=== PATIENT | female | born 1970 | race Caucasian/White ===

== ENCOUNTER 2022-01-28 17:15 | Inpatient (IN) | payer OTHER ==
[2022-01-28 18:28] VITALS: BMI 16.9
[2022-01-28] MEDS ORDERED: NICOTINE 10 MG CARTRIDGE (INHALER) IH PRN (20:22)
[2022-01-28] MEDS ORDERED: MAGNESIUM CITRATE 300 ML BOTTLE PO PRN (20:22)
[2022-01-28] MEDS ORDERED: BISMUTH SUBSALICYLATE 524 MG/30 ML PO PRN (20:22)
[2022-01-28] MEDS ORDERED: P-EPHED 60MG/TRIPROLIDI 2.5MG TABLET PO PRN (20:22)
[2022-01-28] MEDS ORDERED: MAGNESIUM HYDROX 2400MG/30ML ORAL SUSPENSION 30 ML CUP PO PRN (20:22)
[2022-01-28] MEDS ORDERED: LOPERAMIDE HCL 2 MG CAPSULE PO PRN (20:22)
[2022-01-28] MEDS ORDERED: ACETAMINOPHEN 325 MG TABLET (FP) PO PRN ×2 (20:22)
[2022-01-28] MEDS ORDERED: MAG HYDROX/AL HYDROX/SIMETH 30 ML UNIT-DOSE CUP PO PRN (20:22)
[2022-01-28] MEDS ORDERED: ONDANSETRON *ODT* 4 MG TABLET SL PRN (20:22)
[2022-01-28] MEDS ORDERED: BENZOCAINE/MENTHOL (CHLORASEPTIC ) LOZENGE MM PRN (20:22)
[2022-01-28] MEDS ORDERED: DICYCLOMINE HCL 10 MG CAPSULE PO PRN (20:22)
[2022-01-28] MEDS ORDERED: chlordiazePOXIDE HCL 25 MG CAPSULE PO PRN (20:24)
[2022-01-29] MEDS: chlordiazePOXIDE HCL 25 MG CAPSULE PO SCH ×5 (00:37→22:31)
[2022-01-29] MEDS: MELATONIN 5 MG TABLETS PO PRN ×2 (00:40→22:31)
[2022-01-29] MEDS: THIAMINE HCL 100 MG TABLET (FP) PO SCH ×2 (00:47→22:31)
[2022-01-29] MEDS: hydrOXYzine PAMOATE 25 MG CAPSULE (FP) PO PRN (06:01)
[2022-01-29] MEDS ORDERED: methaDONE HCL 10 MG TABLET PO ONE ×2 (09:03→10:08)
[2022-01-29] MEDS ORDERED: methaDONE HCL 10 MG TABLET ONE (10:24)
[2022-01-29] MEDS ORDERED: methaDONE HCL 40 MG DISPERSABLE TABLET ONE (10:25)
[2022-01-29] MEDS: PRENATAL VITAMINS W/ FOLIC ACID TABLET (FP) PO SCH (10:26)
[2022-01-29] MEDS: EMTRICITABINE 200MG/TENOFOVIR 300MG PO SCH (10:26)
[2022-01-29] MEDS ORDERED: methaDONE 40 MG, methaDONE 20 MG PO ONE (10:30)
[2022-01-30] MEDS ORDERED: methaDONE HCL 40 MG DISPERSABLE TABLET ONE (04:42)
[2022-01-30] MEDS ORDERED: methaDONE HCL 10 MG TABLET ONE (04:42)
[2022-01-30] MEDS: chlordiazePOXIDE HCL 25 MG CAPSULE PO SCH ×4 (05:45→22:27)
[2022-01-30] MEDS ORDERED: methaDONE HCL 10 MG TABLET PO SCH ×2 (06:00)
[2022-01-30] MEDS ORDERED: methaDONE 40 MG, methaDONE 30 MG PO ONE (06:00)
[2022-01-30] MEDS: hydrOXYzine PAMOATE 25 MG CAPSULE (FP) PO PRN (10:15)
[2022-01-30] MEDS: PRENATAL VITAMINS W/ FOLIC ACID TABLET (FP) PO SCH (10:15)
[2022-01-30] MEDS: FLUoxetine HCL 20 MG CAPSULE PO SCH (10:15)
[2022-01-30] MEDS: EMTRICITABINE 200MG/TENOFOVIR 300MG PO SCH (10:17)
[2022-01-30] MEDS: METHOCARBAMOL 500 MG TABLET PO PRN (10:17)
[2022-01-30] MEDS: IBUPROFEN 400 MG TABLET (FP) PO PRN (10:17)
[2022-01-30 12:53] LABS: HEMATOCRIT 33.8 % (32.4-45.2); HEMOGLOBIN 11.6 GM/dL (10.7-15.3); MCH 29.7 pg (25.7-33.7); MCHC 34.2 g/dl (32.0-36.0); MEAN CELL VOLUME 86.8 fl (80-96); MEAN PLT VOLUME 8.1 fl (7.5-11.1); PLATELET COUNT 229 10^3/uL (134-434); RBC 3.89 M/mm3 (3.60-5.2); RDW 14.6 % (11.6-15.6); WHITE BLOOD COUNT 4.2 K/mm3 (4.0-10.0)
[2022-01-30 13:40] LABS: ALBUMIN 3.2 g/dl (3.4-5.0); BLOOD UREA NITROGEN 12.8 mg/dL (7-18); CALCIUM 8.7 mg/dL (8.5-10.1)
[2022-01-30 13:44] LABS: BILIRUBIN,TOTAL 0.2 mg/dL (0.2-1); CREATININE 0.9 mg/dL (0.55-1.3)
[2022-01-30 13:45] LABS: TOT PROT 6.5 g/dl (6.4-8.2)
[2022-01-30] MEDS: IBUPROFEN 600 MG TABLET (FP) PO PRN (17:35)
[2022-01-30] MEDS: THIAMINE HCL 100 MG TABLET (FP) PO SCH (22:26)
[2022-01-30] MEDS: MELATONIN 5 MG TABLETS PO PRN (22:26)
[2022-01-31] MEDS ORDERED: chlordiazePOXIDE HCL 10 MG CAPSULE PO PRN
[2022-01-31] MEDS ORDERED: methaDONE HCL 40 MG DISPERSABLE TABLET PO ONE (06:00)
[2022-01-31] MEDS ORDERED: methaDONE HCL 10 MG TABLET PO SCH (06:00)
[2022-01-31] MEDS: chlordiazePOXIDE HCL 10 MG CAPSULE PO SCH ×4 (06:37→22:34)
[2022-01-31] MEDS: hydrOXYzine PAMOATE 25 MG CAPSULE (FP) PO PRN (06:38)
[2022-01-31] MEDS: FLUoxetine HCL 20 MG CAPSULE PO SCH (10:46)
[2022-01-31] MEDS: PRENATAL VITAMINS W/ FOLIC ACID TABLET (FP) PO SCH (10:46)
[2022-01-31] MEDS: EMTRICITABINE 200MG/TENOFOVIR 300MG PO SCH (10:46)
[2022-01-31] MEDS: IBUPROFEN 400 MG TABLET (FP) PO PRN (22:32)
[2022-01-31] MEDS: MELATONIN 5 MG TABLETS PO PRN (22:32)
[2022-01-31] MEDS: THIAMINE HCL 100 MG TABLET (FP) PO SCH (22:32)
[2022-02-01] MEDS ORDERED: methaDONE HCL 10 MG TABLET ONE (04:38)
[2022-02-01] MEDS ORDERED: methaDONE HCL 40 MG DISPERSABLE TABLET ONE (04:39)
[2022-02-01] MEDS ORDERED: methaDONE HCL 10 MG TABLET PO SCH (06:00)
[2022-02-01] MEDS: methaDONE 80 MG, methaDONE 10 MG PO SCH (06:21)
[2022-02-01] MEDS: chlordiazePOXIDE HCL 10 MG CAPSULE PO SCH ×2 (06:21→17:54)
[2022-02-01] MEDS: IBUPROFEN 600 MG TABLET (FP) PO PRN (10:24)
[2022-02-01] MEDS: hydrOXYzine PAMOATE 25 MG CAPSULE (FP) PO PRN ×2 (10:24→19:34)
[2022-02-01] MEDS: PRENATAL VITAMINS W/ FOLIC ACID TABLET (FP) PO SCH (10:24)
[2022-02-01] MEDS: EMTRICITABINE 200MG/TENOFOVIR 300MG PO SCH (10:25)
[2022-02-01] MEDS: FLUoxetine HCL 20 MG CAPSULE PO SCH (10:25)
[2022-02-01] MEDS: METHOCARBAMOL 500 MG TABLET PO PRN (17:52)
[2022-02-01] MEDS: THIAMINE HCL 100 MG TABLET (FP) PO SCH (22:56)
[2022-02-02] MEDS ORDERED: chlordiazePOXIDE HCL 10 MG CAPSULE PO ONE (05:00)
[2022-02-02] MEDS ORDERED: methaDONE HCL 10 MG TABLET ONE (05:07)
[2022-02-02] MEDS ORDERED: methaDONE HCL 40 MG DISPERSABLE TABLET ONE (05:08)
[2022-02-02] MEDS: methaDONE 80 MG, methaDONE 10 MG PO SCH (06:35)
[2022-02-02 08:42] VITALS: BP 102/65; PULSE 73; TEMP 97.6
[2022-02-02] MEDS: PRENATAL VITAMINS W/ FOLIC ACID TABLET (FP) PO SCH (10:24)
[2022-02-02] MEDS: EMTRICITABINE 200MG/TENOFOVIR 300MG PO SCH (10:25)
[2022-02-02] MEDS: FLUoxetine HCL 20 MG CAPSULE PO SCH (10:25)
[2022-02-02] MEDS: hydrOXYzine PAMOATE 25 MG CAPSULE (FP) PO PRN (10:26)
[2022-02-02] MEDS: IBUPROFEN 400 MG TABLET (FP) PO PRN (10:27)
[2022-02-02] MEDS: METHOCARBAMOL 500 MG TABLET PO PRN (10:27)
[2022-02-04 01:00] LABS: HIV INTERPRETATION NEGATIVE (NEGATIVE)
== END 2022-02-02 12:20 | disposition home or self-care (01) | DRG 773 ==
LOC: YASAS 17:15 → Y3N 23:01
PROVIDERS: ADMIT Allergy & Immunology; ATTEND Surgery
PROC: HZ2ZZZZ Detoxification Services for Substance Abuse Treatment (ICD-10-PCS; principal; 2022-01-28)
DX: F11.23 Opioid dependence with withdrawal (principal); F10.230 Alcohol dependence with withdrawal, uncomplicated; F13.20 Sedative, hypnotic or anxiolytic dependence, uncomplicated; F14.20 Cocaine dependence, uncomplicated; F15.20 Other stimulant dependence, uncomplicated; F17.210 Nicotine dependence, cigarettes, uncomplicated; F19.282 Other psychoactive substance dependence with psychoactive substance-induced sleep disorder; F19.24 Other psychoactive substance dependence with psychoactive substance-induced mood disorder; F39 Unspecified mood [affective] disorder; Z62.810 Personal history of physical and sexual abuse in childhood; I35.0 Nonrheumatic aortic (valve) stenosis; Z95.2 Presence of prosthetic heart valve; R63.4 Abnormal weight loss; Z68.1 Body mass index [BMI] 19.9 or less, adult
CPT/HCPCS: 36415; 80053; 81025; 85027; 86780; 87389; C9803-CS; U0003; U0005

== ENCOUNTER 2022-03-30 13:55 | Inpatient (IN) | payer OTHER ==
[2022-03-30] MEDS ORDERED: BENZOCAINE/MENTHOL (CHLORASEPTIC ) LOZENGE MM PRN (17:51)
[2022-03-30] MEDS ORDERED: ACETAMINOPHEN 325 MG TABLET (FP) PO PRN ×2 (17:51)
[2022-03-30] MEDS ORDERED: ONDANSETRON *ODT* 4 MG TABLET SL PRN (17:51)
[2022-03-30] MEDS ORDERED: BISMUTH SUBSALICYLATE 524 MG/30 ML PO PRN (17:51)
[2022-03-30] MEDS ORDERED: DICYCLOMINE HCL 10 MG CAPSULE PO PRN (17:51)
[2022-03-30] MEDS ORDERED: chlordiazePOXIDE HCL 25 MG CAPSULE PO PRN (17:51)
[2022-03-30] MEDS ORDERED: MAGNESIUM HYDROX 2400MG/30ML ORAL SUSPENSION 30 ML CUP PO PRN (17:51)
[2022-03-30] MEDS ORDERED: MAG HYDROX/AL HYDROX/SIMETH 30 ML UNIT-DOSE CUP PO PRN (17:51)
[2022-03-30] MEDS ORDERED: IBUPROFEN 400 MG TABLET (FP) PO PRN (17:51)
[2022-03-30] MEDS ORDERED: LOPERAMIDE HCL 2 MG CAPSULE PO PRN (17:51)
[2022-03-30] MEDS ORDERED: IBUPROFEN 600 MG TABLET (FP) PO PRN (17:51)
[2022-03-30] MEDS: FAMOTIDINE 20 MG TABLET PO SCH (19:24)
[2022-03-30] MEDS: chlordiazePOXIDE HCL 25 MG CAPSULE PO SCH ×2 (19:25→22:19)
[2022-03-30] MEDS: hydrOXYzine PAMOATE 25 MG CAPSULE (FP) PO SCH ×2 (19:25→22:19)
[2022-03-30] MEDS: NICOTINE 10 MG CARTRIDGE (INHALER) IH PRN (19:40)
[2022-03-30] MEDS: EMTRICITABINE 200MG/TENOFOVIR 300MG PO SCH (20:00)
[2022-03-30] MEDS: MELATONIN 5 MG TABLETS PO SCH (22:19)
[2022-03-30] MEDS: THIAMINE HCL 100 MG TABLET (FP) PO SCH (22:19)
[2022-03-31] MEDS: hydrOXYzine PAMOATE 25 MG CAPSULE (FP) PO SCH ×5 (05:44→22:02)
[2022-03-31] MEDS: chlordiazePOXIDE HCL 25 MG CAPSULE PO SCH ×4 (05:44→22:02)
[2022-03-31] MEDS ORDERED: ESTRADIOL 0.5 MG PO SCH (10:00)
[2022-03-31] MEDS: FAMOTIDINE 20 MG TABLET PO SCH (10:16)
[2022-03-31] MEDS: METHOCARBAMOL 500 MG TABLET PO PRN ×2 (10:16→16:44)
[2022-03-31] MEDS: PRENATAL VITAMINS W/ FOLIC ACID TABLET (FP) PO SCH (10:16)
[2022-03-31] MEDS: EMTRICITABINE 200MG/TENOFOVIR 300MG PO SCH (10:17)
[2022-03-31] MEDS ORDERED: methaDONE HCL 10 MG TABLET PO ONE (10:42)
[2022-03-31] MEDS ORDERED: methaDONE 80 MG, methaDONE 10 MG PO ONE (10:45)
[2022-03-31 10:48] LABS: HEMATOCRIT 35.2 % (32.4-45.2); HEMOGLOBIN 11.6 GM/dL (10.7-15.3); MCH 28.7 pg (25.7-33.7); MCHC 32.9 g/dl (32.0-36.0); MEAN CELL VOLUME 87.3 fl (80-96); MEAN PLT VOLUME 8.6 fl (7.5-11.1); PLATELET COUNT 259 10^3/uL (134-434); RBC 4.03 M/mm3 (3.60-5.2); RDW 14.2 % (11.6-15.6); WHITE BLOOD COUNT 8.2 K/mm3 (4.0-10.0)
[2022-03-31 11:41] LABS: CALCIUM 8.8 mg/dL (8.5-10.1)
[2022-03-31 11:42] LABS: ALBUMIN 3.4 g/dl (3.4-5.0); BLOOD UREA NITROGEN 16.1 mg/dL (7-18)
[2022-03-31 11:45] LABS: CREATININE 0.9 mg/dL (0.55-1.3)
[2022-03-31 11:47] LABS: BILIRUBIN,TOTAL 0.4 mg/dL (0.2-1); TOT PROT 6.9 g/dl (6.4-8.2)
[2022-03-31] MEDS: NICOTINE 10 MG CARTRIDGE (INHALER) IH PRN (17:43)
[2022-03-31] MEDS: THIAMINE HCL 100 MG TABLET (FP) PO SCH (22:02)
[2022-03-31] MEDS: MELATONIN 5 MG TABLETS PO SCH (22:03)
[2022-03-31] MEDS: MAGNESIUM CITRATE 300 ML BOTTLE PO PRN (22:05)
[2022-04-01] MEDS: methaDONE 80 MG, methaDONE 10 MG PO SCH (05:40)
[2022-04-01] MEDS: hydrOXYzine PAMOATE 25 MG CAPSULE (FP) PO SCH ×5 (05:40→22:18)
[2022-04-01] MEDS: chlordiazePOXIDE HCL 25 MG CAPSULE PO SCH ×4 (05:41→22:19)
[2022-04-01] MEDS ORDERED: methaDONE HCL 10 MG TABLET PO SCH (06:00)
[2022-04-01] MEDS: FAMOTIDINE 20 MG TABLET PO SCH (10:39)
[2022-04-01] MEDS: METHOCARBAMOL 500 MG TABLET PO PRN ×2 (10:39→18:12)
[2022-04-01] MEDS: PRENATAL VITAMINS W/ FOLIC ACID TABLET (FP) PO SCH (10:39)
[2022-04-01] MEDS: EMTRICITABINE 200MG/TENOFOVIR 300MG PO SCH (10:40)
[2022-04-01] MEDS: NICOTINE 10 MG CARTRIDGE (INHALER) IH PRN (13:00)
[2022-04-01] MEDS: MAGNESIUM CITRATE 300 ML BOTTLE PO PRN (15:01)
[2022-04-01 16:14] LABS: HIV INTERPRETATION NEGATIVE (NEGATIVE)
[2022-04-01] MEDS: MELATONIN 5 MG TABLETS PO SCH (22:18)
[2022-04-01] MEDS: THIAMINE HCL 100 MG TABLET (FP) PO SCH (22:18)
[2022-04-02] MEDS ORDERED: chlordiazePOXIDE HCL 10 MG CAPSULE PO PRN
[2022-04-02] MEDS: hydrOXYzine PAMOATE 25 MG CAPSULE (FP) PO SCH ×5 (07:06→22:43)
[2022-04-02] MEDS: chlordiazePOXIDE HCL 10 MG CAPSULE PO SCH ×4 (07:06→22:43)
[2022-04-02] MEDS: methaDONE 80 MG, methaDONE 10 MG PO SCH (07:10)
[2022-04-02] MEDS: METHOCARBAMOL 500 MG TABLET PO PRN ×2 (10:33→18:47)
[2022-04-02] MEDS: FAMOTIDINE 20 MG TABLET PO SCH (10:33)
[2022-04-02] MEDS: PRENATAL VITAMINS W/ FOLIC ACID TABLET (FP) PO SCH (10:33)
[2022-04-02] MEDS: EMTRICITABINE 200MG/TENOFOVIR 300MG PO SCH (10:33)
[2022-04-02] MEDS ORDERED: DIPHENOXYLATE 2.5/ATROPINE.025 1 COMBO TABLET PO ONE (15:41)
[2022-04-02] MEDS: THIAMINE HCL 100 MG TABLET (FP) PO SCH (22:43)
[2022-04-02] MEDS: MELATONIN 5 MG TABLETS PO SCH (22:43)
[2022-04-03] MEDS ORDERED: chlordiazePOXIDE HCL 10 MG CAPSULE PO SCH (05:00)
[2022-04-03] MEDS: hydrOXYzine PAMOATE 25 MG CAPSULE (FP) PO SCH ×2 (07:01→10:21)
[2022-04-03] MEDS: methaDONE 80 MG, methaDONE 10 MG PO SCH (07:01)
[2022-04-03 09:33] VITALS: BP 91/64; PULSE 88; RESP 147; TEMP 97.7
[2022-04-03] MEDS: EMTRICITABINE 200MG/TENOFOVIR 300MG PO SCH (10:20)
[2022-04-03] MEDS: PRENATAL VITAMINS W/ FOLIC ACID TABLET (FP) PO SCH (10:20)
[2022-04-03] MEDS: FAMOTIDINE 20 MG TABLET PO SCH (10:21)
[2022-04-03] MEDS: METHOCARBAMOL 500 MG TABLET PO PRN (10:21)
[2022-04-04] MEDS ORDERED: chlordiazePOXIDE HCL 10 MG CAPSULE PO ONE (05:00)
== END 2022-04-03 11:25 | disposition home or self-care (01) | DRG 773 ==
LOC: YASAS 13:55 → Y6N 18:05
PROVIDERS: ADMIT Allergy & Immunology; ATTEND Surgery
PROC: HZ2ZZZZ Detoxification Services for Substance Abuse Treatment (ICD-10-PCS; principal; 2022-03-30)
DX: F10.230 Alcohol dependence with withdrawal, uncomplicated (principal); F11.20 Opioid dependence, uncomplicated; F13.230 Sedative, hypnotic or anxiolytic dependence with withdrawal, uncomplicated; F14.20 Cocaine dependence, uncomplicated; F17.210 Nicotine dependence, cigarettes, uncomplicated; F39 Unspecified mood [affective] disorder; F19.24 Other psychoactive substance dependence with psychoactive substance-induced mood disorder; F19.280 Other psychoactive substance dependence with psychoactive substance-induced anxiety disorder; F43.10 Post-traumatic stress disorder, unspecified; I10 Essential (primary) hypertension; Z28.310 Unvaccinated for COVID-19; Z56.0 Unemployment, unspecified
CPT/HCPCS: 36415; 80053; 81025; 85027; 86780; 87389; C9803-CS; U0003; U0005

== ENCOUNTER 2022-05-11 12:12 | Inpatient (IN) | payer OTHER ==
[2022-05-11 13:02] VITALS: BMI 17.3
[2022-05-11] MEDS ORDERED: MAG HYDROX/AL HYDROX/SIMETH 30 ML UNIT-DOSE CUP PO PRN (15:26)
[2022-05-11] MEDS ORDERED: diazePAM 5 MG TABLET PO PRN (15:26)
[2022-05-11] MEDS ORDERED: IBUPROFEN 400 MG TABLET (FP) PO PRN (15:26)
[2022-05-11] MEDS ORDERED: BENZOCAINE/MENTHOL (CHLORASEPTIC ) LOZENGE MM PRN (15:26)
[2022-05-11] MEDS ORDERED: DICYCLOMINE HCL 10 MG CAPSULE PO PRN (15:26)
[2022-05-11] MEDS ORDERED: IBUPROFEN 600 MG TABLET (FP) PO PRN (15:26)
[2022-05-11] MEDS ORDERED: MAGNESIUM HYDROX 2400MG/30ML ORAL SUSPENSION 30 ML CUP PO PRN (15:26)
[2022-05-11] MEDS ORDERED: ONDANSETRON *ODT* 4 MG TABLET SL PRN (15:26)
[2022-05-11] MEDS ORDERED: METHOCARBAMOL 500 MG TABLET PO PRN (15:26)
[2022-05-11] MEDS ORDERED: ACETAMINOPHEN 325 MG TABLET (FP) PO PRN (15:26)
[2022-05-11] MEDS ORDERED: NICOTINE 10 MG CARTRIDGE (INHALER) IH PRN (15:26)
[2022-05-11] MEDS ORDERED: NICOTINE POLACRILEX 2 MG GUM BUC PRN (15:26)
[2022-05-11] MEDS ORDERED: LOPERAMIDE HCL 2 MG CAPSULE PO PRN (15:26)
[2022-05-11] MEDS ORDERED: MAGNESIUM CITRATE 300 ML BOTTLE PO PRN (15:26)
[2022-05-11] MEDS ORDERED: BISMUTH SUBSALICYLATE 524 MG/30 ML PO PRN (15:26)
[2022-05-11] MEDS ORDERED: diazePAM 5 MG TABLET PO STA (15:42)
[2022-05-11] MEDS ORDERED: diazePAM 5 MG TABLET ONE (15:52)
[2022-05-11] MEDS: PRENATAL VITAMINS W/ FOLIC ACID TABLET (FP) PO SCH (18:00)
[2022-05-11] MEDS: diazePAM 5 MG TABLET PO SCH ×2 (18:01→22:04)
[2022-05-11] MEDS: hydrOXYzine PAMOATE 25 MG CAPSULE (FP) PO SCH ×2 (18:03→22:04)
[2022-05-11] MEDS: THIAMINE HCL 100 MG TABLET (FP) PO SCH (22:04)
[2022-05-11] MEDS: EMTRICITABINE 200MG/TENOFOVIR 300MG PO SCH (22:04)
[2022-05-11] MEDS: MELATONIN 5 MG TABLETS PO SCH (22:04)
[2022-05-11] MEDS: ACETAMINOPHEN 325 MG TABLET (FP) PO PRN (22:06)
[2022-05-12] MEDS ORDERED: methaDONE HCL 10 MG TABLET PO SCH (06:00)
[2022-05-12] MEDS: diazePAM 5 MG TABLET PO SCH ×4 (06:09→22:25)
[2022-05-12] MEDS: methaDONE 80 MG, methaDONE 10 MG PO SCH (06:09)
[2022-05-12] MEDS: hydrOXYzine PAMOATE 25 MG CAPSULE (FP) PO SCH ×5 (06:10→22:25)
[2022-05-12] MEDS: EMTRICITABINE 200MG/TENOFOVIR 300MG PO SCH (10:13)
[2022-05-12] MEDS: PRENATAL VITAMINS W/ FOLIC ACID TABLET (FP) PO SCH (10:13)
[2022-05-12 11:24] LABS: HEMATOCRIT 29.8 % (32.4-45.2); MCH 28.8 pg (25.7-33.7); MCHC 33.7 g/dl (32.0-36.0); MEAN CELL VOLUME 85.4 fl (80-96); MEAN PLT VOLUME 8.2 fl (7.5-11.1); PLATELET COUNT 371 10^3/uL (134-434); RBC 3.49 M/mm3 (3.60-5.2); RDW 13.8 % (11.6-15.6); WHITE BLOOD COUNT 5.6 K/mm3 (4.0-10.0)
[2022-05-12 11:50] LABS: ALBUMIN 2.5 g/dl (3.4-5.0); BLOOD UREA NITROGEN 13.2 mg/dL (7-18); CALCIUM 8.6 mg/dL (8.5-10.1)
[2022-05-12 11:54] LABS: CREATININE 0.9 mg/dL (0.55-1.3)
[2022-05-12 11:55] LABS: BILIRUBIN,TOTAL 0.3 mg/dL (0.2-1); TOT PROT 5.9 g/dl (6.4-8.2)
[2022-05-12 13:16] LABS: HIV INTERPRETATION NEGATIVE (NEGATIVE)
[2022-05-12] MEDS: ESTRADIOL 2 MG TABLET (NON-FORMULARY) PO SCH (13:35)
[2022-05-12] MEDS: traZODone HCL 100 MG TABLET (FP) PO SCH (22:25)
[2022-05-12] MEDS: THIAMINE HCL 100 MG TABLET (FP) PO SCH (22:25)
[2022-05-12] MEDS: MELATONIN 5 MG TABLETS PO SCH (22:25)
[2022-05-13] MEDS: diazePAM 5 MG TABLET PO SCH ×3 (06:16→22:28)
[2022-05-13] MEDS: hydrOXYzine PAMOATE 25 MG CAPSULE (FP) PO SCH ×5 (06:17→22:28)
[2022-05-13] MEDS: methaDONE 80 MG, methaDONE 10 MG PO SCH (06:17)
[2022-05-13] MEDS: PRENATAL VITAMINS W/ FOLIC ACID TABLET (FP) PO SCH (10:44)
[2022-05-13] MEDS: EMTRICITABINE 200MG/TENOFOVIR 300MG PO SCH (10:45)
[2022-05-13] MEDS: ESTRADIOL 2 MG TABLET (NON-FORMULARY) PO SCH (10:45)
[2022-05-13] MEDS: ACETAMINOPHEN 325 MG TABLET (FP) PO PRN (22:27)
[2022-05-13] MEDS: THIAMINE HCL 100 MG TABLET (FP) PO SCH (22:28)
[2022-05-13] MEDS: traZODone HCL 100 MG TABLET (FP) PO SCH (22:28)
[2022-05-13] MEDS: MELATONIN 5 MG TABLETS PO SCH (22:28)
[2022-05-14] MEDS: diazePAM 5 MG TABLET PO SCH ×2 (07:20→19:08)
[2022-05-14] MEDS: methaDONE 80 MG, methaDONE 10 MG PO SCH (07:20)
[2022-05-14] MEDS: hydrOXYzine PAMOATE 25 MG CAPSULE (FP) PO SCH ×4 (07:21→19:09)
[2022-05-14 07:43] VITALS: RESP 16
[2022-05-14] MEDS: PRENATAL VITAMINS W/ FOLIC ACID TABLET (FP) PO SCH (10:43)
[2022-05-14] MEDS: EMTRICITABINE 200MG/TENOFOVIR 300MG PO SCH (10:44)
[2022-05-14] MEDS: ESTRADIOL 2 MG TABLET (NON-FORMULARY) PO SCH (10:44)
[2022-05-14 12:25] VITALS: BP 78/53; PULSE 82; TEMP 97.7
[2022-05-15] MEDS ORDERED: diazePAM 5 MG TABLET PO ONE (06:00)
== END 2022-05-14 20:20 | disposition short-term general hospital (02) | DRG 773 ==
LOC: YASAS 12:12 → Y3N 15:58
PROVIDERS: ADMIT Allergy & Immunology; ATTEND Surgery
PROC: HZ2ZZZZ Detoxification Services for Substance Abuse Treatment (ICD-10-PCS; principal; 2022-05-11)
DX: F10.230 Alcohol dependence with withdrawal, uncomplicated (principal); F11.20 Opioid dependence, uncomplicated; F14.20 Cocaine dependence, uncomplicated; F13.20 Sedative, hypnotic or anxiolytic dependence, uncomplicated; F17.210 Nicotine dependence, cigarettes, uncomplicated; F31.9 Bipolar disorder, unspecified; F19.282 Other psychoactive substance dependence with psychoactive substance-induced sleep disorder; F19.24 Other psychoactive substance dependence with psychoactive substance-induced mood disorder; R42 Dizziness and giddiness; Z62.810 Personal history of physical and sexual abuse in childhood; Z91.410 Personal history of adult physical and sexual abuse; Z28.310 Unvaccinated for COVID-19
CPT/HCPCS: 36415; 80053; 81025; 85027; 86780; 87389; 87811; C9803-CS; U0003; U0005

== ENCOUNTER 2022-05-14 13:18 | Inpatient (IN) | payer OTHER ==
[2022-05-14] MEDS ORDERED: SODIUM CHLORIDE 0.9% 500 ML INFUS.BAG IV ONE ×2 (13:59→16:17)
[2022-05-14 15:09] LABS: BASO % 0.5 % (0-2.0); EOS % 1.2 % (0-4.5); HEMATOCRIT 33.6 % (32.4-45.2); HEMOGLOBIN 11.1 GM/dL (10.7-15.3); LYMPH % 31.9 % (8-40); MCH 28.3 pg (25.7-33.7); MCHC 32.9 g/dl (32.0-36.0); MEAN PLT VOLUME 7.8 fl (7.5-11.1); MONO % 7.6 % (3.8-10.2); NEUT % 58.8 % (42.8-82.8); PLATELET COUNT 306 10^3/uL (134-434); RBC 3.91 M/mm3 (3.60-5.2); RDW 13.8 % (11.6-15.6); WHITE BLOOD COUNT 5.1 K/mm3 (4.0-10.0)
[2022-05-14 15:20] LABS: INR 1.67 (0.83-1.09); PROTHROMBIN TIME (PATIENT) 19.3 SEC (9.7-13.0)
[2022-05-14 15:23] LABS: ACTIVATED PTT 30.9 SECONDS (25.2-36.5)
[2022-05-14 15:28] LABS: CALCIUM 8.7 mg/dL (8.5-10.1)
[2022-05-14 15:29] LABS: ALBUMIN 2.8 g/dl (3.4-5.0); BLOOD UREA NITROGEN 9.4 mg/dL (7-18); MAGNESIUM 2.1 mg/dL (1.8-2.4)
[2022-05-14 15:31] LABS: PHOSPHOROUS 3.5 mg/dL (2.5-4.9)
[2022-05-14 15:33] LABS: BILIRUBIN,TOTAL 0.1 mg/dL (0.2-1); TOT PROT 6.6 g/dl (6.4-8.2)
[2022-05-14] MEDS ORDERED: SODIUM CHLORIDE 1,000 ML IV SCH (17:00)
[2022-05-14 19:15] LABS: PH,URINE 7.5 (5.0-8.0); URINE APPEARANCE CLEAR; URINE BILIRUBIN NEGATIVE (NEGATIVE); URINE COLOR YELLOW; URINE GLUCOSE (UA) NEGATIVE (NEGATIVE); URINE KETONE NEGATIVE (NEGATIVE); URINE LEUK ESTERASE NEGATIVE (NEGATIVE); URINE NITRITE NEGATIVE (NEGATIVE); URINE PROTEIN NEGATIVE (NEGATIVE); URINE UROBILINOGEN 0.2 mg/dL (0.2-1.0)
[2022-05-14] MEDS ORDERED: POLYETHYLENE GLYCOL (HEALTHYLAX) 3350 17 GM PACKET ONE (22:34)
[2022-05-14] MEDS ORDERED: DOCUSATE SODIUM 100 MG CAPSULE (FP) PO ONE (22:34)
[2022-05-14] MEDS ORDERED: diazePAM 5 MG TABLET ONE (22:34)
[2022-05-14] MEDS: diazePAM 5 MG TABLET PO SCH (22:38)
[2022-05-14] MEDS: POLYETHYLENE GLYCOL (HEALTHYLAX) 3350 17 GM PACKET PO SCH (22:38)
[2022-05-14] MEDS: SENNOSIDES 8.6MG TABLET (FP) PO SCH (22:38)
[2022-05-15] MEDS ORDERED: methaDONE HCL 10 MG TABLET PO SCH (06:00)
[2022-05-15] MEDS: POLYETHYLENE GLYCOL (HEALTHYLAX) 3350 17 GM PACKET PO SCH (09:47)
[2022-05-15] MEDS: FLUoxetine HCL 20 MG CAPSULE PO SCH (09:47)
[2022-05-15] MEDS: ENOXAPARIN NA (PORCINE) 40 MG/0.4 ML DISP.SYRIN SQ SCH (09:47)
[2022-05-15] MEDS: OLANZapine 10 MG TABLET PO SCH (09:47)
[2022-05-15] MEDS: diazePAM 5 MG TABLET PO SCH ×2 (09:48→21:13)
[2022-05-15] MEDS ORDERED: ESTRADIOL 0.5 MG PO SCH (10:00)
[2022-05-15] MEDS: SODIUM CHLORIDE 1,000 ML IV SCH (10:38)
[2022-05-15] MEDS ORDERED: methaDONE 80 MG, methaDONE 10 MG PO ONE ×2 (11:30→11:45)
[2022-05-15] MEDS ORDERED: methaDONE HCL 10 MG TABLET (FOR DETOX USE ONLY) PO ONE (11:34)
[2022-05-15] MEDS ORDERED: REMDESIVIR 200 MG in SODIUM CHLORIDE 250 ML IVPB ONE (11:35)
[2022-05-15] MEDS: EMTRICITABINE 200MG/TENOFOVIR 300MG PO SCH (11:44)
[2022-05-15 11:48] LABS: ALBUMIN 2.6 g/dl (3.4-5.0); BLOOD UREA NITROGEN 11.5 mg/dL (7-18); CALCIUM 8.2 mg/dL (8.5-10.1)
[2022-05-15 11:51] LABS: PHOSPHOROUS 2.8 mg/dL (2.5-4.9)
[2022-05-15 11:52] LABS: CREATININE 0.8 mg/dL (0.55-1.3)
[2022-05-15 11:53] LABS: BILIRUBIN,TOTAL 0.2 mg/dL (0.2-1)
[2022-05-15] MEDS: NICOTINE 14 MG/24 HOURS TOPICAL PATCH TD SCH (13:33)
[2022-05-15 15:20] LABS: BASO % 0.8 % (0-2.0); EOS % 1.6 % (0-4.5); HEMATOCRIT 30.2 % (32.4-45.2); HEMOGLOBIN 9.9 GM/dL (10.7-15.3); LYMPH % 39.6 % (8-40); MCH 28.3 pg (25.7-33.7); MCHC 32.6 g/dl (32.0-36.0); MEAN CELL VOLUME 86.6 fl (80-96); MONO % 7.8 % (3.8-10.2); NEUT % 50.2 % (42.8-82.8); PLATELET COUNT 251 10^3/uL (134-434); RBC 3.49 M/mm3 (3.60-5.2); RDW 13.5 % (11.6-15.6)
[2022-05-15] MEDS: SENNOSIDES 8.6MG TABLET (FP) PO SCH (21:14)
[2022-05-16] MEDS: NICOTINE 14 MG/24 HOURS TOPICAL PATCH TD SCH (09:54)
[2022-05-16] MEDS: FLUoxetine HCL 20 MG CAPSULE PO SCH (09:54)
[2022-05-16] MEDS: OLANZapine 10 MG TABLET PO SCH (09:54)
[2022-05-16] MEDS: EMTRICITABINE 200MG/TENOFOVIR 300MG PO SCH (09:54)
[2022-05-16] MEDS: diazePAM 5 MG TABLET PO SCH (09:55)
[2022-05-16] MEDS: ENOXAPARIN NA (PORCINE) 40 MG/0.4 ML DISP.SYRIN SQ SCH (09:56)
[2022-05-16] MEDS: POLYETHYLENE GLYCOL (HEALTHYLAX) 3350 17 GM PACKET PO SCH (09:56)
[2022-05-16] MEDS: REMDESIVIR 100 MG in SODIUM CHLORIDE 250 ML IVPB SCH (09:56)
[2022-05-16] MEDS: SODIUM CHLORIDE 1,000 ML IV SCH ×2 (10:00→15:52)
[2022-05-16 11:40] LABS: BASO % 0.5 % (0-2.0); EOS % 0.9 % (0-4.5); HEMATOCRIT 29.4 % (32.4-45.2); HEMOGLOBIN 9.7 GM/dL (10.7-15.3); LYMPH % 37.1 % (8-40); MCH 28.5 pg (25.7-33.7); MEAN CELL VOLUME 86.2 fl (80-96); MEAN PLT VOLUME 8.5 fl (7.5-11.1); MONO % 9.4 % (3.8-10.2); NEUT % 52.1 % (42.8-82.8); PLATELET COUNT 229 10^3/uL (134-434); RBC 3.41 M/mm3 (3.60-5.2); WHITE BLOOD COUNT 4.6 K/mm3 (4.0-10.0)
[2022-05-16 12:12] LABS: ALBUMIN 2.4 g/dl (3.4-5.0); BLOOD UREA NITROGEN 14.4 mg/dL (7-18); CALCIUM 8.1 mg/dL (8.5-10.1); MAGNESIUM 1.9 mg/dL (1.8-2.4)
[2022-05-16 12:14] LABS: CREATININE 0.8 mg/dL (0.55-1.3); PHOSPHOROUS 2.3 mg/dL (2.5-4.9)
[2022-05-16 12:16] LABS: BILIRUBIN,TOTAL 0.1 mg/dL (0.2-1); TOT PROT 5.6 g/dl (6.4-8.2)
[2022-05-16] MEDS: methaDONE 80 MG, methaDONE 10 MG PO SCH (13:28)
[2022-05-16 18:32] VITALS: BMI 16.4
[2022-05-16] MEDS: MULTIVITAMINS THER W-MINERALS COMBO TABLET (FP) PO SCH (20:51)
[2022-05-16] MEDS: SENNOSIDES 8.6MG TABLET (FP) PO SCH (21:09)
[2022-05-16] MEDS ORDERED: clonazePAM 0.5 MG TABLET PO ONE (22:08)
[2022-05-17] MEDS: SODIUM CHLORIDE 1,000 ML IV SCH ×2 (03:46→09:13)
[2022-05-17] MEDS: methaDONE 80 MG, methaDONE 10 MG PO SCH (05:54)
[2022-05-17] MEDS: EMTRICITABINE 200MG/TENOFOVIR 300MG PO SCH (09:14)
[2022-05-17] MEDS: MULTIVITAMINS THER W-MINERALS COMBO TABLET (FP) PO SCH (09:14)
[2022-05-17] MEDS: POLYETHYLENE GLYCOL (HEALTHYLAX) 3350 17 GM PACKET PO SCH (09:14)
[2022-05-17] MEDS: NICOTINE 14 MG/24 HOURS TOPICAL PATCH TD SCH (09:14)
[2022-05-17] MEDS: FLUoxetine HCL 20 MG CAPSULE PO SCH (09:14)
[2022-05-17] MEDS: ENOXAPARIN NA (PORCINE) 40 MG/0.4 ML DISP.SYRIN SQ SCH (09:14)
[2022-05-17] MEDS: OLANZapine 10 MG TABLET PO SCH (09:14)
[2022-05-17 10:36] LABS: BASO % 0.4 % (0-2.0); EOS % 0.9 % (0-4.5); HEMATOCRIT 29.7 % (32.4-45.2); LYMPH % 36.4 % (8-40); MCH 29.1 pg (25.7-33.7); MCHC 33.6 g/dl (32.0-36.0); MEAN CELL VOLUME 86.5 fl (80-96); MEAN PLT VOLUME 8.7 fl (7.5-11.1); MONO % 9.1 % (3.8-10.2); NEUT % 53.2 % (42.8-82.8); PLATELET COUNT 223 10^3/uL (134-434); RBC 3.43 M/mm3 (3.60-5.2); RDW 14.4 % (11.6-15.6); WHITE BLOOD COUNT 4.4 K/mm3 (4.0-10.0)
[2022-05-17] MEDS: REMDESIVIR 100 MG in SODIUM CHLORIDE 250 ML IVPB SCH (10:59)
[2022-05-17 11:03] LABS: ALBUMIN 2.4 g/dl (3.4-5.0); BLOOD UREA NITROGEN 15.6 mg/dL (7-18); CALCIUM 7.8 mg/dL (8.5-10.1); MAGNESIUM 1.9 mg/dL (1.8-2.4)
[2022-05-17 11:05] LABS: CREATININE 0.8 mg/dL (0.55-1.3); PHOSPHOROUS 2.4 mg/dL (2.5-4.9)
[2022-05-17 11:07] LABS: TOT PROT 5.7 g/dl (6.4-8.2)
[2022-05-17 11:10] LABS: BILIRUBIN,TOTAL 0.5 mg/dL (0.2-1)
[2022-05-17] MEDS: NAPH,MB-DB/K PH,MBDB POWDER PACKET PO SCH ×2 (13:22→21:24)
[2022-05-17] MEDS: SENNOSIDES 8.6MG TABLET (FP) PO SCH (21:24)
[2022-05-17] MEDS: MELATONIN 5 MG TABLETS PO PRN (22:20)
[2022-05-18] MEDS: methaDONE 80 MG, methaDONE 10 MG PO SCH (06:00)
[2022-05-18] MEDS: NAPH,MB-DB/K PH,MBDB POWDER PACKET PO SCH ×2 (06:01→14:59)
[2022-05-18] MEDS: POLYETHYLENE GLYCOL (HEALTHYLAX) 3350 17 GM PACKET PO SCH (09:36)
[2022-05-18] MEDS: OLANZapine 10 MG TABLET PO SCH (09:36)
[2022-05-18] MEDS: MULTIVITAMINS THER W-MINERALS COMBO TABLET (FP) PO SCH (09:36)
[2022-05-18] MEDS: NICOTINE 14 MG/24 HOURS TOPICAL PATCH TD SCH ×2 (09:36→10:12)
[2022-05-18] MEDS: FLUoxetine HCL 20 MG CAPSULE PO SCH (09:36)
[2022-05-18] MEDS: ENOXAPARIN NA (PORCINE) 40 MG/0.4 ML DISP.SYRIN SQ SCH (09:36)
[2022-05-18] MEDS: EMTRICITABINE 200MG/TENOFOVIR 300MG PO SCH (09:37)
[2022-05-18 10:28] LABS: BASO % 0.4 % (0-2.0); EOS % 0.8 % (0-4.5); HEMATOCRIT 31.7 % (32.4-45.2); HEMOGLOBIN 10.6 GM/dL (10.7-15.3); LYMPH % 28.1 % (8-40); MCH 28.8 pg (25.7-33.7); MCHC 33.5 g/dl (32.0-36.0); MEAN CELL VOLUME 85.7 fl (80-96); MEAN PLT VOLUME 9.1 fl (7.5-11.1); MONO % 10.6 % (3.8-10.2); NEUT % 60.1 % (42.8-82.8); PLATELET COUNT 234 10^3/uL (134-434); RDW 14.2 % (11.6-15.6); WHITE BLOOD COUNT 5.8 K/mm3 (4.0-10.0)
[2022-05-18 10:54] LABS: CALCIUM 8.3 mg/dL (8.5-10.1)
[2022-05-18 10:55] LABS: ALBUMIN 2.6 g/dl (3.4-5.0); BLOOD UREA NITROGEN 16.1 mg/dL (7-18)
[2022-05-18 10:57] LABS: PHOSPHOROUS 2.6 mg/dL (2.5-4.9)
[2022-05-18 10:58] LABS: CREATININE 0.7 mg/dL (0.55-1.3)
[2022-05-18 10:59] LABS: BILIRUBIN,TOTAL 0.1 mg/dL (0.2-1); TOT PROT 6.2 g/dl (6.4-8.2)
[2022-05-18] MEDS ORDERED: COSYNTROPIN 0.25 MG VIAL IVPUSH ONE (17:30)
[2022-05-18] MEDS: SENNOSIDES 8.6MG TABLET (FP) PO SCH (21:12)
[2022-05-18] MEDS: MELATONIN 5 MG TABLETS PO PRN (21:12)
[2022-05-19] MEDS: methaDONE 80 MG, methaDONE 10 MG PO SCH (06:37)
[2022-05-19 09:00] LABS: HEMATOCRIT 31.7 % (32.4-45.2); HEMOGLOBIN 10.8 GM/dL (10.7-15.3); MCH 29.2 pg (25.7-33.7); MCHC 33.9 g/dl (32.0-36.0); PLATELET COUNT 215 10^3/uL (134-434); RBC 3.68 M/mm3 (3.60-5.2); WHITE BLOOD COUNT 6.5 K/mm3 (4.0-10.0)
[2022-05-19 09:17] LABS: CALCIUM 8.3 mg/dL (8.5-10.1)
[2022-05-19 09:18] LABS: ALBUMIN 2.7 g/dl (3.4-5.0); BLOOD UREA NITROGEN 19.7 mg/dL (7-18)
[2022-05-19 09:21] LABS: CREATININE 0.7 mg/dL (0.55-1.3); PHOSPHOROUS 2.9 mg/dL (2.5-4.9)
[2022-05-19 09:23] LABS: BILIRUBIN,TOTAL 0.2 mg/dL (0.2-1); TOT PROT 6.2 g/dl (6.4-8.2)
[2022-05-19] MEDS: FLUoxetine HCL 20 MG CAPSULE PO SCH (10:18)
[2022-05-19] MEDS: NICOTINE 14 MG/24 HOURS TOPICAL PATCH TD SCH ×2 (10:19→10:27)
[2022-05-19] MEDS: OLANZapine 10 MG TABLET PO SCH (10:19)
[2022-05-19] MEDS: POLYETHYLENE GLYCOL (HEALTHYLAX) 3350 17 GM PACKET PO SCH (10:19)
[2022-05-19] MEDS: MULTIVITAMINS THER W-MINERALS COMBO TABLET (FP) PO SCH (10:19)
[2022-05-19] MEDS: EMTRICITABINE 200MG/TENOFOVIR 300MG PO SCH (10:19)
[2022-05-19] MEDS: ENOXAPARIN NA (PORCINE) 40 MG/0.4 ML DISP.SYRIN SQ SCH (10:20)
[2022-05-19] MEDS: FLUDROCORTISONE ACETATE 0.1 MG TABLET (FP) PO SCH (12:41)
[2022-05-19] MEDS: SENNOSIDES 8.6MG TABLET (FP) PO SCH (21:01)
[2022-05-19] MEDS: MELATONIN 5 MG TABLETS PO PRN (21:01)
[2022-05-20] MEDS: methaDONE 80 MG, methaDONE 10 MG PO SCH (05:49)
[2022-05-20] MEDS: OLANZapine 10 MG TABLET PO SCH (10:22)
[2022-05-20] MEDS: EMTRICITABINE 200MG/TENOFOVIR 300MG PO SCH (10:22)
[2022-05-20] MEDS: FLUDROCORTISONE ACETATE 0.1 MG TABLET (FP) PO SCH (10:22)
[2022-05-20] MEDS: FLUoxetine HCL 20 MG CAPSULE PO SCH (10:22)
[2022-05-20] MEDS: MULTIVITAMINS THER W-MINERALS COMBO TABLET (FP) PO SCH (10:22)
[2022-05-20] MEDS: ENOXAPARIN NA (PORCINE) 40 MG/0.4 ML DISP.SYRIN SQ SCH (10:22)
[2022-05-20] MEDS: NICOTINE 14 MG/24 HOURS TOPICAL PATCH TD SCH (10:23)
[2022-05-20] MEDS: POLYETHYLENE GLYCOL (HEALTHYLAX) 3350 17 GM PACKET PO SCH (10:23)
[2022-05-20 11:41] LABS: HEMATOCRIT 30.2 % (32.4-45.2); HEMOGLOBIN 10.1 GM/dL (10.7-15.3); MCH 28.9 pg (25.7-33.7); MCHC 33.5 g/dl (32.0-36.0); MEAN CELL VOLUME 86.5 fl (80-96); MEAN PLT VOLUME 9.8 fl (7.5-11.1); PLATELET COUNT 206 10^3/uL (134-434); RDW 14.6 % (11.6-15.6); WHITE BLOOD COUNT 5.4 K/mm3 (4.0-10.0)
[2022-05-20 12:14] LABS: CREATININE 0.7 mg/dL (0.55-1.3)
[2022-05-20 12:15] LABS: ALBUMIN 2.6 g/dl (3.4-5.0); CALCIUM 8.4 mg/dL (8.5-10.1)
[2022-05-20 12:16] LABS: BILIRUBIN,TOTAL 0.1 mg/dL (0.2-1); BLOOD UREA NITROGEN 21.8 mg/dL (7-18)
[2022-05-20 12:17] LABS: PHOSPHOROUS 3.5 mg/dL (2.5-4.9)
[2022-05-20] MEDS ORDERED: COSYNTROPIN 0.25 MG VIAL IM ONE (13:00)
[2022-05-20] MEDS: SENNOSIDES 8.6MG TABLET (FP) PO SCH (23:00)
[2022-05-21] MEDS: methaDONE 80 MG, methaDONE 10 MG PO SCH (06:24)
[2022-05-21] MEDS: OLANZapine 10 MG TABLET PO SCH (09:35)
[2022-05-21] MEDS: MULTIVITAMINS THER W-MINERALS COMBO TABLET (FP) PO SCH (09:35)
[2022-05-21] MEDS: FLUDROCORTISONE ACETATE 0.1 MG TABLET (FP) PO SCH (09:35)
[2022-05-21] MEDS: EMTRICITABINE 200MG/TENOFOVIR 300MG PO SCH (09:35)
[2022-05-21] MEDS: NICOTINE 14 MG/24 HOURS TOPICAL PATCH TD SCH (09:36)
[2022-05-21] MEDS: POLYETHYLENE GLYCOL (HEALTHYLAX) 3350 17 GM PACKET PO SCH (09:36)
[2022-05-21] MEDS: ENOXAPARIN NA (PORCINE) 40 MG/0.4 ML DISP.SYRIN SQ SCH (09:36)
[2022-05-21] MEDS: FLUoxetine HCL 20 MG CAPSULE PO SCH (09:39)
[2022-05-21 11:46] LABS: HEMATOCRIT 30.7 % (32.4-45.2); HEMOGLOBIN 10.1 GM/dL (10.7-15.3); MCH 28.3 pg (25.7-33.7); MCHC 32.8 g/dl (32.0-36.0); MEAN CELL VOLUME 86.1 fl (80-96); MEAN PLT VOLUME 9.8 fl (7.5-11.1); PLATELET COUNT 230 10^3/uL (134-434); RBC 3.57 M/mm3 (3.60-5.2); RDW 14.8 % (11.6-15.6); WHITE BLOOD COUNT 4.8 K/mm3 (4.0-10.0)
[2022-05-21 12:14] LABS: MAGNESIUM 2.2 mg/dL (1.8-2.4)
[2022-05-21 12:18] LABS: ALBUMIN 2.6 g/dl (3.4-5.0); BLOOD UREA NITROGEN 19.7 mg/dL (7-18); CALCIUM 8.7 mg/dL (8.5-10.1); PHOSPHOROUS 3.2 mg/dL (2.5-4.9)
[2022-05-21 12:21] LABS: CREATININE 0.7 mg/dL (0.55-1.3)
[2022-05-21 12:22] LABS: BILIRUBIN,TOTAL 0.2 mg/dL (0.2-1)
[2022-05-21 12:23] LABS: TOT PROT 5.9 g/dl (6.4-8.2)
[2022-05-21] MEDS: SENNOSIDES 8.6MG TABLET (FP) PO SCH (21:24)
[2022-05-21] MEDS: MELATONIN 5 MG TABLETS PO PRN (21:24)
[2022-05-22] MEDS: methaDONE 80 MG, methaDONE 10 MG PO SCH (05:47)
[2022-05-22] MEDS: FLUDROCORTISONE ACETATE 0.1 MG TABLET (FP) PO SCH (09:00)
[2022-05-22] MEDS: EMTRICITABINE 200MG/TENOFOVIR 300MG PO SCH (09:00)
[2022-05-22] MEDS: NICOTINE 14 MG/24 HOURS TOPICAL PATCH TD SCH (09:01)
[2022-05-22] MEDS: FLUoxetine HCL 20 MG CAPSULE PO SCH (09:01)
[2022-05-22] MEDS: MULTIVITAMINS THER W-MINERALS COMBO TABLET (FP) PO SCH (09:01)
[2022-05-22] MEDS: POLYETHYLENE GLYCOL (HEALTHYLAX) 3350 17 GM PACKET PO SCH (09:01)
[2022-05-22] MEDS: OLANZapine 10 MG TABLET PO SCH (09:01)
[2022-05-22 11:15] LABS: HEMATOCRIT 28.8 % (32.4-45.2); MCH 29.8 pg (25.7-33.7); MCHC 34.6 g/dl (32.0-36.0); MEAN CELL VOLUME 86.2 fl (80-96); MEAN PLT VOLUME 9.7 fl (7.5-11.1); PLATELET COUNT 217 10^3/uL (134-434); RBC 3.35 M/mm3 (3.60-5.2); WHITE BLOOD COUNT 4.5 K/mm3 (4.0-10.0)
[2022-05-22 11:45] LABS: ALBUMIN 2.6 g/dl (3.4-5.0); BLOOD UREA NITROGEN 17.8 mg/dL (7-18); CALCIUM 8.5 mg/dL (8.5-10.1)
[2022-05-22 11:48] LABS: CREATININE 0.7 mg/dL (0.55-1.3); PHOSPHOROUS 3.5 mg/dL (2.5-4.9)
[2022-05-22 11:50] LABS: BILIRUBIN,TOTAL 0.2 mg/dL (0.2-1)
[2022-05-22] MEDS ORDERED: clonazePAM 0.5 MG TABLET PO ONE (14:44)
[2022-05-22] MEDS: SENNOSIDES 8.6MG TABLET (FP) PO SCH (21:33)
[2022-05-22] MEDS: MELATONIN 5 MG TABLETS PO PRN (21:33)
[2022-05-23] MEDS: methaDONE 80 MG, methaDONE 10 MG PO SCH (06:15)
[2022-05-23] MEDS: OLANZapine 10 MG TABLET PO SCH (09:10)
[2022-05-23] MEDS: POLYETHYLENE GLYCOL (HEALTHYLAX) 3350 17 GM PACKET PO SCH (09:10)
[2022-05-23] MEDS: EMTRICITABINE 200MG/TENOFOVIR 300MG PO SCH (09:10)
[2022-05-23] MEDS: MULTIVITAMINS THER W-MINERALS COMBO TABLET (FP) PO SCH (09:10)
[2022-05-23] MEDS: FLUDROCORTISONE ACETATE 0.1 MG TABLET (FP) PO SCH (09:10)
[2022-05-23] MEDS: FLUoxetine HCL 20 MG CAPSULE PO SCH (09:10)
[2022-05-23] MEDS: NICOTINE 14 MG/24 HOURS TOPICAL PATCH TD SCH (09:10)
[2022-05-23 09:14] VITALS: RESP 18
[2022-05-23 10:30] LABS: HEMATOCRIT 31.4 % (32.4-45.2); HEMOGLOBIN 10.3 GM/dL (10.7-15.3); MCH 28.3 pg (25.7-33.7); MCHC 32.7 g/dl (32.0-36.0); MEAN CELL VOLUME 86.5 fl (80-96); MEAN PLT VOLUME 9.8 fl (7.5-11.1); PLATELET COUNT 255 10^3/uL (134-434); RBC 3.63 M/mm3 (3.60-5.2); RDW 14.9 % (11.6-15.6); WHITE BLOOD COUNT 6.2 K/mm3 (4.0-10.0)
[2022-05-23 10:54] LABS: ALBUMIN 2.8 g/dl (3.4-5.0); BLOOD UREA NITROGEN 20.1 mg/dL (7-18); CALCIUM 8.7 mg/dL (8.5-10.1)
[2022-05-23 10:57] LABS: CREATININE 0.7 mg/dL (0.55-1.3)
[2022-05-23 10:59] LABS: TOT PROT 6.5 g/dl (6.4-8.2)
[2022-05-23 11:03] LABS: BILIRUBIN,TOTAL 0.2 mg/dL (0.2-1)
[2022-05-23 11:48] LABS: MAGNESIUM 2.2 mg/dL (1.8-2.4)
[2022-05-23 11:52] LABS: PHOSPHOROUS 3.7 mg/dL (2.5-4.9)
[2022-05-23 12:18] LABS: HIV INTERPRETATION NEGATIVE (NEGATIVE)
[2022-05-23] MEDS: clonazePAM 0.5 MG TABLET PO SCH (21:25)
[2022-05-23] MEDS: MELATONIN 5 MG TABLETS PO PRN (21:26)
[2022-05-23] MEDS: SENNOSIDES 8.6MG TABLET (FP) PO SCH (21:31)
[2022-05-24] MEDS: methaDONE 80 MG, methaDONE 10 MG PO SCH (06:20)
[2022-05-24] MEDS: FLUoxetine HCL 20 MG CAPSULE PO SCH (09:08)
[2022-05-24] MEDS: clonazePAM 0.5 MG TABLET PO SCH ×2 (09:08→21:19)
[2022-05-24] MEDS: MULTIVITAMINS THER W-MINERALS COMBO TABLET (FP) PO SCH (09:08)
[2022-05-24] MEDS: OLANZapine 10 MG TABLET PO SCH (09:08)
[2022-05-24] MEDS: FLUDROCORTISONE ACETATE 0.1 MG TABLET (FP) PO SCH (09:09)
[2022-05-24] MEDS: EMTRICITABINE 200MG/TENOFOVIR 300MG PO SCH (09:09)
[2022-05-24] MEDS: POLYETHYLENE GLYCOL (HEALTHYLAX) 3350 17 GM PACKET PO SCH (09:09)
[2022-05-24] MEDS: NICOTINE 14 MG/24 HOURS TOPICAL PATCH TD SCH (09:12)
[2022-05-24 11:05] LABS: HEMATOCRIT 33.6 % (32.4-45.2); HEMOGLOBIN 11.2 GM/dL (10.7-15.3); MCHC 33.3 g/dl (32.0-36.0); MEAN CELL VOLUME 87.2 fl (80-96); MEAN PLT VOLUME 9.1 fl (7.5-11.1); PLATELET COUNT 239 10^3/uL (134-434); RBC 3.86 M/mm3 (3.60-5.2); RDW 15.4 % (11.6-15.6); WHITE BLOOD COUNT 4.7 K/mm3 (4.0-10.0)
[2022-05-24 11:25] LABS: MAGNESIUM 2.2 mg/dL (1.8-2.4)
[2022-05-24 11:28] LABS: PHOSPHOROUS 3.4 mg/dL (2.5-4.9)
[2022-05-24 11:29] LABS: ALBUMIN 2.9 g/dl (3.4-5.0); BLOOD UREA NITROGEN 19.2 mg/dL (7-18); CALCIUM 8.8 mg/dL (8.5-10.1)
[2022-05-24 11:32] LABS: CREATININE 0.7 mg/dL (0.55-1.3)
[2022-05-24 11:34] LABS: BILIRUBIN,TOTAL 0.3 mg/dL (0.2-1); TOT PROT 6.9 g/dl (6.4-8.2)
[2022-05-24] MEDS: SENNOSIDES 8.6MG TABLET (FP) PO SCH (21:19)
[2022-05-24] MEDS: MELATONIN 5 MG TABLETS PO PRN (23:23)
[2022-05-25] MEDS: methaDONE 80 MG, methaDONE 10 MG PO SCH (09:24)
[2022-05-25] MEDS: POLYETHYLENE GLYCOL (HEALTHYLAX) 3350 17 GM PACKET PO SCH (09:28)
[2022-05-25] MEDS: MULTIVITAMINS THER W-MINERALS COMBO TABLET (FP) PO SCH (09:28)
[2022-05-25] MEDS: OLANZapine 10 MG TABLET PO SCH (09:28)
[2022-05-25] MEDS: clonazePAM 0.5 MG TABLET PO SCH (09:28)
[2022-05-25] MEDS: NICOTINE 14 MG/24 HOURS TOPICAL PATCH TD SCH (09:28)
[2022-05-25] MEDS: FLUoxetine HCL 20 MG CAPSULE PO SCH (09:28)
[2022-05-25] MEDS: FLUDROCORTISONE ACETATE 0.1 MG TABLET (FP) PO SCH (09:41)
[2022-05-25] MEDS: EMTRICITABINE 200MG/TENOFOVIR 300MG PO SCH (09:41)
[2022-05-25 12:21] VITALS: BP 107/68; PULSE 93; TEMP 98
== END 2022-05-25 14:15 | disposition home or self-care (01) | DRG 137 ==
LOC: JER 13:18 → OBSVTOIN 16:34 → JERBED 16:34 → J6S 05-15 00:55
PROVIDERS: ADMIT Internal Medicine; ATTEND Internal Medicine
PROC: XW033E5 Introduction of Remdesivir Anti-infective into Peripheral Vein, Percutaneous Approach, New Technology Group 5 (ICD-10-PCS; principal; 2022-05-15)
DX: U07.1 COVID-19 (principal); F11.20 Opioid dependence, uncomplicated; R64 Cachexia; Z68.1 Body mass index [BMI] 19.9 or less, adult; E43 Unspecified severe protein-calorie malnutrition; I95.89 Other hypotension; E86.1 Hypovolemia; F17.210 Nicotine dependence, cigarettes, uncomplicated; D64.9 Anemia, unspecified; F31.9 Bipolar disorder, unspecified; Z95.2 Presence of prosthetic heart valve; R62.7 Adult failure to thrive; Z28.310 Unvaccinated for COVID-19; K59.00 Constipation, unspecified; F10.20 Alcohol dependence, uncomplicated; F14.20 Cocaine dependence, uncomplicated; F43.10 Post-traumatic stress disorder, unspecified; F39 Unspecified mood [affective] disorder
CPT/HCPCS: 36415; 71045-TC-FY; 71250-TC; 80053; 81003; 82024; 82533; 82607; 82728; 83540; 83550; 83615; 83690; 83735; 84100; 84153; 84439; 84443; 84479; 84481; 85025; 85027; 85045; 85379; 85610; 85730; 86140; 86803; 86850; 86900; 86901; 87086; 87389; 87529; 93005; 93010; 97116-GP; 97162-GP; 99285-25; C9399; C9803-CS; J0834; U0003; U0005

== ENCOUNTER 2022-05-25 14:02 | Inpatient (IN) | payer OTHER ==
[2022-05-25 14:59] VITALS: BMI 18.7
[2022-05-25] MEDS ORDERED: MAGNESIUM CITRATE 300 ML BOTTLE PO PRN (16:45)
[2022-05-25] MEDS ORDERED: LOPERAMIDE HCL 2 MG CAPSULE PO PRN (16:45)
[2022-05-25] MEDS ORDERED: NICOTINE 10 MG CARTRIDGE (INHALER) IH PRN (16:45)
[2022-05-25] MEDS ORDERED: DICYCLOMINE HCL 10 MG CAPSULE PO PRN (16:45)
[2022-05-25] MEDS ORDERED: BISMUTH SUBSALICYLATE 524 MG/30 ML PO PRN (16:45)
[2022-05-25] MEDS ORDERED: IBUPROFEN 400 MG TABLET (FP) PO PRN (16:45)
[2022-05-25] MEDS ORDERED: MAGNESIUM HYDROX 2400MG/30ML ORAL SUSPENSION 30 ML CUP PO PRN (16:45)
[2022-05-25] MEDS ORDERED: MAG HYDROX/AL HYDROX/SIMETH 30 ML UNIT-DOSE CUP PO PRN (16:45)
[2022-05-25] MEDS ORDERED: BENZOCAINE/MENTHOL (CHLORASEPTIC ) LOZENGE MM PRN (16:45)
[2022-05-25] MEDS ORDERED: NALOXONE HCL (KLOXXADO) 8 MG SPRAY NS PRN (16:45)
[2022-05-25] MEDS ORDERED: METHOCARBAMOL 500 MG TABLET PO PRN (16:45)
[2022-05-25] MEDS ORDERED: IBUPROFEN 600 MG TABLET (FP) PO PRN (16:45)
[2022-05-25] MEDS ORDERED: ONDANSETRON *ODT* 4 MG TABLET SL PRN (16:45)
[2022-05-25] MEDS ORDERED: diazePAM 5 MG TABLET PO PRN (16:45)
[2022-05-25] MEDS ORDERED: ACETAMINOPHEN 325 MG TABLET (FP) PO PRN ×2 (16:45)
[2022-05-25] MEDS: diazePAM 5 MG TABLET PO SCH ×2 (18:08→22:23)
[2022-05-25] MEDS: hydrOXYzine PAMOATE 25 MG CAPSULE (FP) PO SCH ×2 (18:08→22:20)
[2022-05-25] MEDS: PRENATAL VITAMINS W/ FOLIC ACID TABLET (FP) PO SCH (18:11)
[2022-05-25] MEDS: MELATONIN 5 MG TABLETS PO SCH (22:20)
[2022-05-25] MEDS: THIAMINE HCL 100 MG TABLET (FP) PO SCH (22:21)
[2022-05-26] MEDS: diazePAM 5 MG TABLET PO SCH ×4 (05:11→22:21)
[2022-05-26] MEDS: hydrOXYzine PAMOATE 25 MG CAPSULE (FP) PO SCH (05:12)
[2022-05-26] MEDS ORDERED: hydrOXYzine PAMOATE 25 MG CAPSULE (FP) PO PRN (09:54)
[2022-05-26] MEDS ORDERED: methaDONE HCL 10 MG TABLET PO SCH (10:00)
[2022-05-26] MEDS: PRENATAL VITAMINS W/ FOLIC ACID TABLET (FP) PO SCH (10:26)
[2022-05-26] MEDS: methaDONE 80 MG, methaDONE 10 MG PO SCH (11:57)
[2022-05-26] MEDS: THIAMINE HCL 100 MG TABLET (FP) PO SCH (22:21)
[2022-05-26] MEDS: MELATONIN 5 MG TABLETS PO SCH (22:21)
[2022-05-27] MEDS: diazePAM 5 MG TABLET PO SCH ×2 (05:09→13:48)
[2022-05-27] MEDS: methaDONE 80 MG, methaDONE 10 MG PO SCH (05:09)
[2022-05-27 09:36] VITALS: RESP 16
[2022-05-27] MEDS: PRENATAL VITAMINS W/ FOLIC ACID TABLET (FP) PO SCH (10:34)
[2022-05-27 13:17] VITALS: BP 96/63; PULSE 92; TEMP 98.3
[2022-05-28] MEDS ORDERED: diazePAM 5 MG TABLET PO SCH (06:00)
[2022-05-29] MEDS ORDERED: diazePAM 5 MG TABLET PO ONE (06:00)
== END 2022-05-27 13:45 | disposition home or self-care (01) | DRG 773 ==
LOC: YASAS 14:02 → Y3N 16:34
PROVIDERS: ADMIT Allergy & Immunology; ATTEND Surgery
PROC: HZ2ZZZZ Detoxification Services for Substance Abuse Treatment (ICD-10-PCS; principal; 2022-05-25)
DX: F11.23 Opioid dependence with withdrawal (principal); F14.20 Cocaine dependence, uncomplicated; F13.20 Sedative, hypnotic or anxiolytic dependence, uncomplicated; F17.210 Nicotine dependence, cigarettes, uncomplicated; F31.9 Bipolar disorder, unspecified; F41.9 Anxiety disorder, unspecified; J44.9 Chronic obstructive pulmonary disease, unspecified; Z86.16 Personal history of COVID-19; Z95.4 Presence of other heart-valve replacement; Z28.310 Unvaccinated for COVID-19; Z28.9 Immunization not carried out for unspecified reason
CPT/HCPCS: 36415; 86780; C9803-CS; U0003; U0005